=== PATIENT | female | born 1975 | race Caucasian/White ===

== ENCOUNTER → 2016-11-21 | Outpatient (CLI) | payer OTHER ==
[~2016-11-21] MED LIST: ALBUTEROL 0.5ML INH; ALBUTEROL17 G1 INH; ALBUTEROL17 GM INH; AMOXICILLIN875 MG PO; AUGMENTIN PO; AZITHROMYCIN250 MG PO; BENZONATATE PO; CARDIZEM60 M1 PO; DELTASONE20 MG; DOXYCYCLINE HY100 M1 PO; LEVAQUIN PO; METHIMAZOLE10 MG PO; MONODOX100 MG PO; MUCINEX100 MG/5 M PO; NO MEDICATIONS; PERCOCET PO; PRADAXA150 MG PO; PREDNISONE PO; PREDNISONE10 MG; PROAIR HFA8.5 GM; PROMETHAZINE D118 ML PO; PULMICORT0.25 MG/2; ROBITUSSIN A-C-S1 ML PO; ROXICODONE15 MG PO; SOTALOL120 MG PO; SYMBICORT80 INH; VENTOLIN5 MG/ML INH
--- NOTE | ~2016-11-21 | CR72 ---
[facility] A Service of [facility] & [facility] RADIOLOGY TEXT RESULTS PATIENT: DESIREE LEON LOCATION: [facility] : 71 UNIT #: [id number] AGE: [address]: JUDITH PETERSON SEX: F ORDER DR: [id number] [address] [address] [id number] O MR#: [id number] Acc #: [id number] NAME: DESIREE LEON : 1975 SEX: F STUDY DATE/TIME: 11/21/2016 22:42 UNIT: [facility] ROOM: STUDY DESCRIPTION: CR Chest Single View Portable Attending Physician: Judith Peterson Aprn Referring Physician: Judith Peterson Aprn Ordering Physician: Go Zavala M.D. Primary Care Physician: Fanta Danielson Aprn MEDICAL IMAGING REPORT This report is preliminary unless electronic signature is present. EXAM Portable chest, 11/21/2016. HISTORY Shortness of breath and productive cough for 3 days. Respiratory failure, intubated, COPD exacerbation, and asthma. Heart murmur. FINDINGS The heart is normal in size. Endotracheal tube has been inserted with the tip approximately 2 cm above the noel. The lungs are clear. There are no pleural effusions. IMPRESSION The endotracheal tube tip 2 cm above the noel. Lungs are clear. Dictated by... Vladimir Barreto M.D. THIS IS AN ELECTRONICALLY VERIFIED REPORT Vladimir Barreto M.D. at 12/10/2016 8:10 AM FORD/beata TD: 11/22/2016 09:27 JOB #: [id number] MEDICAL IMAGING REPORT
== END | disposition home or self-care (01) ==
LOC: SRAD 22:10
DX: Z53.9 Procedure and treatment not carried out, unspecified reason (principal)
CPT/HCPCS: 71010

== ENCOUNTER → 2017-01-08 | Outpatient (CLI) | payer OTHER ==
--- NOTE | ~2017-01-08 | NM86 ---
[facility] A Service of [facility] & [facility] RADIOLOGY TEXT RESULTS PATIENT: DESIREE LEON LOCATION: [facility] : 71 UNIT #: [id number] AGE: [address]: Jerel Ragland MD SEX: F ORDER DR: [id number] [place] [address] [place], [place] [address] [id number] O MR#: [id number] Acc #: [id number] NAME: DESIREE LEON : 1975 SEX: F STUDY DATE/TIME: 01/08/2017 7:29 UNIT: [facility] ROOM: STUDY DESCRIPTION: NM Thyroid Img W Uptake Attending Physician: Jerel Ragland M.D. Referring Physician: Jerel Ragland M.D. Ordering Physician: Jerel Ragland M.D. Primary Care Physician: Fanta Danielson Aprn MEDICAL IMAGING REPORT This report is preliminary unless electronic signature is present EXAM Thyroid uptake scan 01/08 INDICATIONS 10 pound weight gain in 1 month. Patient on medication for heart palpitations. Patient also reports dry scan, hot flashes, and difficulty swallowing. Recent episode of respiratory failure. FINDINGS Routine 24-hour delayed imaging was obtained of the thyroid gland after the oral ingestion of 175.5 microcuries of Iodine-123. 24 uptake value is abnormally low at only 3.8%. Correlate with laboratory data. The gland demonstrates homogeneous tracer distribution without a definite focal hot or cold lesion identified. IMPRESSION No focal lesions are identified in the gland. 24 uptake value is abnormally low at 3.8%. Dictated by... Darryl Senior Jr., M.D. THIS IS AN ELECTRONICALLY VERIFIED REPORT Darryl Senior Jr., M.D. at 01/12/2017 9:19 AM RLK/to TD: 01/11/2017 16:39 JOB #: [id number] MEDICAL IMAGING REPORT Page 1 of 1 COPY
== END | disposition home or self-care (01) ==
LOC: CNUC 06:46
DX: E05.90 Thyrotoxicosis, unspecified without thyrotoxic crisis or storm (principal)
CPT/HCPCS: 78014; A9516

== ENCOUNTER → 2017-02-09 | Outpatient (CLI) | payer OTHER | END | disposition home or self-care (01) | LOC: CRC 10:09 | DX: J45.909 Unspecified asthma, uncomplicated (principal) | CPT/HCPCS: 94060; 94726; 94729 ==